=== PATIENT | female | born 1945 ===

== ENCOUNTER → 2023-01-10 08:34 | Outpatient (BNVA) | payer OTHER, SELFPAY | PROVIDERS: PCP Internal Medicine; Visit Provider Psychiatry & Neurology Neurology | DX: Z13.89 Encounter for screening for other disorder (principal) ==

== ENCOUNTER 2025-04-29 09:52 | Outpatient (AMB) | payer OTHER, SELFPAY ==
--- NOTE | 2025-04-29 09:53 | A.OFFVIS_ITS ---
Vital Signs 04/29/25 09:56 Height 5 ft 2 in Weight 165 lb BMI 30.2 BP 138/94 H Blood Pressure Location Rt brachial Position Sitting Pulse 63 Pulse Source Pulse Oximeter Pulse Oximetry (%) 95 Oxygen Delivery Method Room Air Intake Visit Reasons: f/u Intake Note: Patient presents for follow up Allergies morphine Allergy (Severe, Uncoded 04/29/25 09:57) upset stomach Medication List - Last Reconciled 04/29/25 by Silke Leon MD carbidopa-levodopa 25-100 mg (Sinemet) 1 tab PO TID 90 days cholecalciferol (vitamin D3) 50 mcg PO DAILY omeprazole 20 mg PO BID propranolol 20 mg PO BID vitamin B complex (B Complex-Vitamin B12 tablet) 1 tab PO DAILY HPI Comments Details: 79y/o female with cervical dystonia, tremors, anxiety, vertigo , tension headaches comes for follow up after 2 years.. she declined botox . she could not tolerate melatonin. she is on propranolol 20mg bid - she feels her tremors are worse.she is unsteady on her feet. her neck pain is fairly controlled and has vertigo she has daily headaches-worse when she does not sleep. she did not tolerate gabapentin . she also has anxiety she also reports acting out her dreams and nightmares.The episodes have decreased PFSH Medical History (Updated 04/29/25 @ 10:28 by Silke Leon MD) Parkinsons disease Chronic headaches Spasmodic torticollis Vertigo Tremors of nervous system Vertigo Spinal stenosis at L4-L5 level Hyperlipidemia GERD (gastroesophageal reflux disease) HTN (hypertension) Fibromyalgia Anxiety Surgical History H/O inguinal hernia repair History of cholecystectomy Social History Patient Tobacco Use Status: Never used Tobacco Physical Exam Vital Signs: Last Vital Signs Pulse 63 04/29/25 09:56 BP 138/94 H 04/29/25 09:56 Pulse Ox 95 04/29/25 09:56 Oxygen Delivery Method Room Air 04/29/25 09:56 BMI result Body Mass Index 30.2 Const General: cooperative and anxious Nutritional Appearance: overweight Orientation/consciousness: patient oriented x3 Neck Other: spasmodic torticollis retsricted range of motion Neuro Other: Jasbir UE high amplitude rest, postural, action tremors Jasbir cog wheel rigidty gait- very slow, small steps FFM decreased jasbir General: patient oriented x3 Cranial nerves: Yes CN's II-XII intact bilaterally Cognition (Neuro): normal cognition Assessment & Plan Assessment & Plan (1) Spasmodic torticollis: Code(s): G24.3 - Spasmodic torticollis Category: Medical (2) Chronic headaches: Comment: likely cervicogenic Code(s): R51.9 - Headache, unspecified; G89.29 - Other chronic pain Category: Medical (3) Tremors of nervous system: Comment: with some extrapyramidal features Code(s): R25.1 - Tremor, unspecified Category: Medical (4) REM behavioral disorder: Code(s): G47.52 - REM sleep behavior disorder Category: Medical Plan Increase sinemet 25/100 2 tabs tid Continue propranalol 20mg bid PT for gait and neck - going to [facility] HST after her return from [facility] Orders: Orders PT Evaluation and Treatment Today G20.A1 - Parkinson's disease without dyskinesia, without mention of fluctuations Medications: New carbidopa-levodopa 25-100 mg (Sinemet) 1 tab PO TID Discontinued carbidopa-levodopa 25-100 mg (Sinemet) Discontinued Reason: Patient no longer taking 1 tab PO TID 90 days 270 tabs 1RF Coding Level of Care Code Est Pt Level 4 (43715) Complex EM visit Add On G2211 Diagnoses Spasmodic torticollis G24.3 Chronic headaches R51.9; G89.29 Tremors of nervous system R25.1 REM behavioral disorder G47.52
[2025-04-29 09:56] VITALS: BP 138/94; PULSE 63; O2SAT 95; BMI 30.2
== END 2025-04-29 10:43 | disposition home or self-care (01) ==
LOC: HO.HSMS 09:52
PROVIDERS: PCP Internal Medicine; Visit Provider Psychiatry & Neurology Neurology
DX: G24.3 Spasmodic torticollis (principal); R51.9 Headache, unspecified; G89.29 Other chronic pain; G47.52 REM sleep behavior disorder
CPT/HCPCS: 99214